=== PATIENT | male | born 1980 | race Caucasian/White ===

== ENCOUNTER 2021-08-28 12:10 | Emergency (ER) | payer OTHER ==
[~2021-08-28 12:10] MED LIST: ASPIRIN CHEWABL81 MG PO; COREG 3.125M3.125 MG PO; TORADOL 10 MG T10 MG PO; ZOFRAN4 MG PO
[2021-08-28 12:42] LABS: HEMOGLOBIN 15.9 gm/dl (14.0-17.5); WHITE BLOOD COUNT 7.6 K/UL (4.5-11.0)
[2021-08-28 13:05] LABS: BUN/CREATININE RATIO 17 (0-10)
[2021-08-28] MEDS ORDERED: FLOMAX 0.4 MG0.4 MG PO (13:27)
[2021-08-28] MEDS ORDERED: HYDROCODON-ACE1 EAC4 PO (13:35)
== END 2021-08-28 13:50 | disposition home or self-care (01) ==
LOC: ER1 12:10
PROVIDERS: Physician Assistant
DX: N13.2 Hydronephrosis with renal and ureteral calculous obstruction (principal); Z87.442 Personal history of urinary calculi; I10 Essential (primary) hypertension; F17.210 Nicotine dependence, cigarettes, uncomplicated
CPT/HCPCS: 80053; 81001; 83690; 85025; 87086; 96374; 99284; J1885

== ENCOUNTER → 2021-10-01 | Outpatient (CLI) | payer SELFPAY ==
[~2021-10-01] MED LIST changes: +FLOMAX 0.4 MG0.4 MG PO; +HYDROCODON-ACE1 EAC4 PO
[2021-10-01 16:52] LABS: HEMOGLOBIN 15.7 gm/dl (14.0-17.5); RED BLOOD COUNT 4.93 M/UL (4.20-5.50); WHITE BLOOD COUNT 9.6 K/UL (4.5-11.0)
[2021-10-01 17:31] LABS: BUN/CREATININE RATIO 15 (0-10)
== END ==
LOC: LAB 16:25
PROVIDERS: Nurse Practitioner Family
DX: I10 Essential (primary) hypertension (principal)
CPT/HCPCS: 36415; 80053; 80061; 84439; 84443; 85025